=== PATIENT | female | born 1950 | race Caucasian/White ===

== ENCOUNTER 2018-08-05 06:02 | Day surgery (SDC) | payer OTHER ==
[2018-08-04 17:35] VITALS: BMI 26.2
[2018-08-05] MEDS ORDERED: fentaNYL CITRATE 250 MCG/5 ML VIAL ONE (07:19)
[2018-08-05] MEDS ORDERED: MIDAZOLAM HCL 2 MG/2 ML SINGLE DOSE VIAL ONE (07:19)
[2018-08-05] MEDS ORDERED: SUCCINYLCHOLINE CHLORIDE 200 MG/10 ML VIAL ONE (07:19)
[2018-08-05] MEDS ORDERED: LIDOCAINE HCL/PF 2% SDV 5ML VIAL ONE (07:19)
[2018-08-05] MEDS ORDERED: PROPOFOL 20 ML ONE (07:19)
[2018-08-05] MEDS ORDERED: ROCURONIUM BROMIDE 50 MG/5 ML VIAL ONE (07:19)
[2018-08-05] MEDS ORDERED: DEXAMETHASONE SOD PHOSPHATE 4 MG/1 ML VIAL ONE ×2 (07:19→09:34)
[2018-08-05] MEDS ORDERED: BENZOIN TINCTURE SWABSTICK TP ONE (07:28)
[2018-08-05] MEDS ORDERED: LIDOCAINE 1%/EPI 1:100000 (20 ML MULTI DOSE VIAL) ONE (07:28)
[2018-08-05] MEDS ORDERED: MICROFIBRILLAR COLLAGEN 1 GM EACH ONE (07:28)
[2018-08-05] MEDS ORDERED: ceFAZolin SODIUM 1 GM VIAL IVPB ONE (08:03)
[2018-08-05] MEDS ORDERED: ceFAZolin SODIUM 1 GM VIAL ONE (08:03)
[2018-08-05] MEDS ORDERED: LIDOCAINE 1%/EPI 1:100000 (50 ML MULTI DOSE VIAL) INF ONE (08:23)
[2018-08-05] MEDS ORDERED: MICROFIBRILLAR COLLAGEN 1 GM EACH TP ONE ×2 (08:39→08:57)
[2018-08-05 10:29] VITALS: TEMP 98
--- NOTE | 2018-08-05 10:34 | OP ---
DATE OF OPERATION: 08/05/2018 SURGICAL ATTENDING: Bebo Balbuena MD FOOD EDITOR: Genesis PREOPERATIVE DIAGNOSIS: Right thyroid nodules. POSTOPERATIVE DIAGNOSIS: Right thyroid nodules. ANESTHESIA: General endotracheal. PROCEDURE: 1. Right hemithyroidectomy. 2. Parathyroid autotransplantation. 3. Neck ultrasound. DESCRIPTION OF PROCEDURE: The patient was taken into the operating room, placed in a supine position, endotracheally intubated. Neck ultrasound was performed showing 2 right thyroid nodules replacing the right lobe with no left-sided nodules and no adenopathy. The neck was then prepped and draped in the usual sterile fashion. Local anesthesia was administered, and a horizontal incision was made 4.5 cm in length. This was carried down through subcutaneous tissues and platysma. Subplatysmal flaps were raised superiorly and inferiorly, and flap hooks were placed for exposure. The median raphe was incised, and the right-sided strap muscles were elevated off the thyroid gland. The recurrent laryngeal nerve and superior laryngeal nerves were identified, dissected, and preserved. The superior pole and posterior attachments and inferior attachments were transected. The isthmus was transected and this way the right thyroid lobe was removed. Every attempt was made to preserve parathyroid tissue. On inspection of the right thyroid lobe, 1 parathyroid tissue was identified, removed, and sent to frozen section, and verified as parathyroid tissue, and then it was divided into 2 specimens, minced, and replaced into the right sternocleidomastoid muscle in 2 pockets marked by Prolene sutures. Hemostasis was achieved. The wound was then closed in 3 layers. Dermabond was placed. Note that nerve monitoring was used throughout the operation. The nerve remained intact at the conclusion of the operation as well. The patient was then extubated, awakened, and taken to recovery in stable condition. BEBO BALBUENA M.D. [id number]
[2018-08-05] MEDS ORDERED: ONDANSETRON 4 MG/2 ML VIAL ONE ×2 (11:10→12:13)
[2018-08-05] MEDS ORDERED: LACTATED RINGERS SOLUTION 1,000 ML IV SCH (11:45)
[2018-08-05] MEDS ORDERED: oxyCODONE HCL 5 MG TABLET PO PRN (11:45)
[2018-08-05] MEDS ORDERED: ONDANSETRON 4 MG/2 ML VIAL IVPUSH PRN (11:45)
[2018-08-05 12:07] VITALS: BP 142/85; PULSE 72
[2018-08-05] MEDS ORDERED: ONDANSETRON 4 MG/2 ML VIAL IVPUSH ONE (12:15)
--- NOTE | 2018-08-05 15:26 | OP ---
Operative Note - Note: Operative Date: 08/05/18 Pre-Operative Diagnosis: right thyroid nodules Operation: Right Hemithyroidectomy, Parathyroid autotransplantation, neck ultrasound Post-Operative Diagnosis: Same as Pre-op Surgeon: Guilherme Constantino Technology Recruiter: Genesis Vera Anesthesiologist/DIE CAST DIE MAKER: Ricardo Finnegan Anesthesia: General Specimens Removed: right thyroid lobe Estimated Blood Loss (mls): 20 Operative Report Dictated: Yes
--- NOTE | 2018-08-05 15:27 | SURG ---
Surgery Electrical Laboratory Technician Note Electrical Laboratory Technician: Genesis Vera PA-C Date of Service: 08/05/18 Diagnosis: right thyroid nodules Procedure: Right Hemithyroidectomy, Parathyroid autotransplantation, neck ultrasound I was present for the entirety of the operative procedure. For further detail, please refer to operative report. Visit type - Case Type Case Type: Scheduled - Emergency Emergency Visit: No - New patient This patient is new to me today: Yes Date on this admission: 08/05/18
--- NOTE | 2018-08-09 09:05 | PATH ---
Surgical Pathology Report Patient Name: MARICARMEN HAY [facility]. Rec. #: [id number] /Age/Gender: 1950 (Age: 68) / F Account: [id number] Location: [facility] SURGICAL Taken: 08/05/2018 Received: 08/05/2018 Reported: 08/09/2018 Physicians: Guilherme Constantino M.D. Specimen(s) Received A: FROZEN SECTION--BIOPSY B: THYROID, TOTAL LOBE Clinical History Thyroid nodule Intraoperative Consult Diagnosis Frozen section: Consistent with parathyroid tissue. Juliette Lo M.D., 08/05/2018 Final Diagnosis A. RIGHT SUPERIOR PARATHYROID, BIOPSY (FS): BENIGN PARATHYROID TISSUE. B. THYROID, RIGHT LOBE, LOBECTOMY: THYROID TISSUE WITH FOLLICULAR ADENOMA, IN A BACKGROUND OF NODULAR GOITER. Electronically Signed Laly Lo M.D. Gross Description A. Received fresh for frozen section labeled "right superior parathyroid," is a 0.2 x 0.1 x 0.1 cm davis red soft tissue fragment. The specimen is submitted in toto for frozen section. The frozen section residue is entirely submitted in one cassette. B. Received in formalin labeled "right thyroid lobe," is a 14 g, 4.3 x 3.0 x 2.4 cm thyroid lobe. The outer capsule is red-brown and intact. Sectioning reveals 2 nodules measuring 2.5 and 1.5 cm in greatest dimension. The larger nodule is in the superior pole and is hemorrhagic. The smaller nodule is in the inferior pole and displays davis, focally solid parenchyma. The remaining thyroid parenchyma is red-brown and beefy. The specimen is entirely and sequentially submitted in 10 cassettes. /08/05/2018 saudi08/05/2018
== END 2018-08-05 13:40 | disposition home or self-care (01) ==
LOC: JASU-SURG 06:02
PROVIDERS: ATTEND Surgery
PROC: 0GSR0ZZ Reposition Parathyroid Gland, Open Approach (ICD-10-PCS; 2018-08-05)
PROC: 0GTH0ZZ Resection of Right Thyroid Gland Lobe, Open Approach (ICD-10-PCS; principal; 2018-08-05 08:00)
DX: E04.2 Nontoxic multinodular goiter (principal)
CPT/HCPCS: 88305-TC; 88307-TC; 88331-TC; 94760